=== PATIENT | male | born 2000 | race Caucasian/White ===

== ENCOUNTER 2020-09-17 07:25 | Inpatient (IN) ==
[2020-09-17] MEDS ORDERED: XYLOCAINE 1%/SOD BICARB 20 ML VIAL INFIL ONE (07:49)
[2020-09-17] MEDS ORDERED: DIPHTHERIA/TETANUS/PERTUSSIS 0.5 ML SYR/VIAL IM ONE (07:49)
[2020-09-17] MEDS ORDERED: SODIUM CHLORIDE 0.9% 1000ML 1,000 ML IV ONE (07:49)
[2020-09-17] MEDS ORDERED: OPTIRAY 320 100ml IV ONE (08:01)
[2020-09-17 08:32] LABS: Basophils # (auto) 0.03 K/uL (0-0.2); Basophils % (auto) 0.3 %; Eosinophils % (auto) 2.2 %; Hematocrit (blood only) 41.6 % (42-52); Hemoglobin 14.3 g/dL (14.0-18.0); Immature Granulocytes # (auto) 0.01 K/uL (0.00-0.02); Immature Granulocytes % (auto) 0.1 %; Lymphocytes # (auto) 2.04 K/uL (1.2-3.4); Lymphocytes % (auto) 22.8 %; Mean Corpuscular Hemoglobin 28.5 pg (25-34); Mean Corpuscular Hgb Conc 34.4 g/dL (32-36); Mean Platelet Volume 10.5 fL (7.4-10.4); Monocytes # (auto) 0.49 K/uL (0.11-0.59); Monocytes % (auto) 5.5 %; Neutrophils # (auto) 6.19 K/uL (1.4-6.5); Neutrophils % (auto) 69.1 %; Platelet Count 253 K/uL (130-400); RDW Coefficient of Variation 12.6 % (11.5-14.5); RDW Standard Deviation 37.7 fL (36.4-46.3); Red Blood Count 5.01 M/uL (4.7-6.1); White Blood Count 8.96 K/uL (4.8-10.8)
[2020-09-17 08:44] LABS: Prothrombin Time 10.4 Seconds (9.0-12.0)
--- NOTE | 2020-09-17 08:46 | XRay Report ---
XR wrist LT min 3V routine CLINICAL HISTORY: L wrist lac COMPARISON: None. DISCUSSION: No acute fracture dislocation. Multiple calcifications are seen within edematous soft tissue at the d orsal aspect of the left wrist likely representing foreign bodies. IMPRESSION: As above ACT 112: Negative or not required by law. The above report was generated using voice recognition software. It may contain grammatical, syntax o r spelling errors. Electronically signed by: Azeb Ho DO 09/17/2020 8:45 AM
[2020-09-17 08:56] LABS: Alanine Aminotransferase 27 U/L (12-78); Albumin Level 3.9 gm/dl (3.4-5.0); Aspartate Aminotransferase 16 U/L (15-37); BUN Creatinine Ratio 7.9 (10-20); Blood Urea Nitrogen 8 mg/dl (7-18); Calcium 8.2 mg/dl (8.5-10.1); Carbon Dioxide 27 mmol/L (21-32); Chloride 114 mmol/L (98-107); Creatinine Clr Calc Pharmacy 112.4 ml/min; Est GFR (African American) 124.1 ml/min; Est GFR (Non-African American) 107.1 ml/min; Glucose 99 mg/dl (70-99); Potassium 3.9 mmol/L (3.5-5.1); Sodium 146 mmol/L (136-145)
[2020-09-17 09:01] LABS: Albumin Globulin Ratio 1.1 (0.9-2); Alkaline Phosphatase 88 U/L (45-117); Bilirubin,Total 0.2 mg/dl (0.2-1); Globulin 3.5 gm/dl (2.5-4.0); Total Protein 7.4 gm/dl (6.4-8.2); Troponin I < 0.015 ng/ml (0-0.045)
[2020-09-17 09:14] LABS: iSTAT Creatinine 1.1 mg/dl (0.6-1.3); iSTAT Hemoglobin 14.3 g/dl (14.0-18.0); iSTAT Ionized Calcium 1.14 mmol/l (1.12-1.32)
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
[2020-09-17] MEDS ORDERED: ceFAZolin 2000MG 2,000 MG/15 ML SYR IV STA (10:42)
[2020-09-17] MEDS ORDERED: THIAMINE HCL 200 MG in SODIUM CHLORIDE 0.9% 50 ML IV STA (11:01)
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
[2020-09-17] MEDS ORDERED: THIAMINE HCL 200 MG in SODIUM CHLORIDE 0.9% 50 ML IV ONE (11:15)
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
[2020-09-17] MEDS ORDERED: FOLIC ACID 1 MG in SYRINGE 9.8 ML IV ONE (11:30)
[2020-09-17 11:42] LABS: Magnesium 2.2 mg/dl (1.8-2.4)
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
[2020-09-17] MEDS ORDERED: LORazepam 1 MG TAB PO PRN (13:25)
[2020-09-17] MEDS ORDERED: ONDANSETRON INJ 2 MG/ML 2 ML VIAL IV PRN ×3 (13:25→19:41)
[2020-09-17] MEDS ORDERED: KETOROLAC 30 MG/ML VIAL IV PRN (13:25)
[2020-09-17] MEDS ORDERED: MoRPHine SULFATE 2 MG/ML CARP IV PRN (13:25)
[2020-09-17] MEDS ORDERED: LORazepam 1 MG/2 ML VIAL IV PRN (13:25)
[2020-09-17] MEDS ORDERED: ACETAMINOPHEN 325 MG TAB PO PRN (13:25)
[2020-09-17] MEDS: FAMOTIDINE 20 MG in SYRINGE 3 ML IV SCH ×2 (13:55→22:43)
[2020-09-17] MEDS: D5W AND 1/2NSS + 20MEQ KCL 20 MEQ/1,000 ML BAG IV SCH ×2 (13:55→22:43)
[2020-09-17] MEDS ORDERED: LIDOCAINE 2% 2 ML VIAL/AMP(20MG/ML) INFIL ONE (19:22)
[2020-09-17] MEDS ORDERED: PROPOFOL IV EMULSION 10 MG/ML 20 ML VIAL IV ONE (19:23)
[2020-09-17] MEDS ORDERED: fentaNYL citrate 100 MCG/2 ML VIAL ONE ×2 (19:23→20:42)
[2020-09-17] MEDS ORDERED: MIDAZOLAM HCL 1 MG/ML 2ML VIAL ONE (19:24)
[2020-09-17] MEDS ORDERED: BUPIVACAINE 0.5 % 5 MG/1 ML MPF 30ML VIAL ONE (19:28)
[2020-09-17] MEDS ORDERED: LIDOCAINE 1% LOCAL 20 ML VIAL ONE (19:28)
--- NOTE | 2020-09-17 19:32 | Anesthesiology Consultation ---
Date of Service September 17, 2020 Assessment & Plan Chart Review Chart Review: Acceptable Risk for Surgery Consults Requested none History Surgery Operation Date: 09/17/20 13:00 Proposed Procedures p Incision and Drainage Extremity(Left) - Noé Medina M.D. Height/Weight Height: 5 ft 10 in Weight: 68 kg Allergies Allergy/AdvReac Type Severity Reaction Status Date / Time No Known Allergies Allergy Unverified 09/17/20 11:02 Medications Home Medications Medication Instructions Recorded Confirmed Last Taken No Known Home Medications 09/17/20 09/17/20 Unknown Active Medications Generic Name Dose Route Start Last Admin Trade Name Freq PRN Reason Stop Dose Admin Potassium Chloride/Dextrose/Sod Cl 20 meq in 1,000 mls @ 125 mls/hr 09/17/20 13:45 09/17/20 13:55 D5w And 1/2nss + 20meq Kcl IV 09/18/20 05:44 125 mls/hr .Q8H JW Administration Famotidine 20 mg/ Syringe 5 mls @ 2.5 mls/min 09/17/20 14:00 09/17/20 13:55 IV 10/17/20 13:59 2.5 mls/min BID WJ Administration NPO Date Last Intake of Fluids: 09/17/20 Time Last Intake of Fluids: 04:00 Date Last Intake of Solids: 09/16/20 Time Last Intake of Solids: 22:00 Past Medical History Medical History Alcohol abuse History of marijuana use per ER records Vaping nicotine dependence, tobacco product Past Family History Family History Father No pertinent family history Mother No pertinent family history Past Surgical History Surgical History No significant past surgical history Social History Smoking Status: Never smoker Do You Dip or Chew Tobacco: No Hx Alcohol Use: Yes Alcohol type: beer, wine and hard liquor alcohol intake frequency: a few times a month Hx Substance Use: No substance use type: does not use Physical Exam Vital Signs Last Vital Signs Temp 37 C 09/17/20 15:37 Pulse 105 H 09/17/20 15:37 Resp 14 09/17/20 15:37 BP 152/72 H 09/17/20 15:37 Pulse Ox 100 09/17/20 15:37 Testing Laboratory Results 09/17/20 08:14 09/17/20 08:14 PT 10.4 Seconds (9.0-12.0) 09/17/20 08:14 INR 1.0 (0.9-1.1) 09/17/20 08:14 09/17/20 08:48 POC Glucose (other) 111 H
[2020-09-17] MEDS ORDERED: HYDROmorphone INJ 1 MG/ML SYRINGE IV PRN (19:33)
[2020-09-17] MEDS ORDERED: ATROPINE SULFATE 0.1 MG/ML 10ML SYR IV PRN ×2 (19:33→19:41)
[2020-09-17] MEDS ORDERED: fentaNYL citrate 100 MCG/2 ML VIAL IV PRN ×2 (19:33→19:41)
[2020-09-17] MEDS ORDERED: ePHEDrine sulfate 50 MG/ML AMP IV PRN ×2 (19:33→19:41)
[2020-09-17] MEDS ORDERED: HYDROmorphone INJ 2 MG/ML SYR/VIAL IV PRN (19:41)
[2020-09-17] MEDS ORDERED: ONDANSETRON INJ 2 MG/ML 2 ML VIAL ONE (20:02)
[2020-09-17] MEDS ORDERED: DEXAMETHASONE SOD INJ 4 MG/ML VIAL ONE (20:02)
--- NOTE | 2020-09-17 21:09 | Post Operative Brief Note ---
Immediate Post Op Note v1 Date of Surgery September 17, 2020 Pre & Post Diagnosis Operation Date: 09/17/20 13:00 Pre-Op Diagnosis: Left wrist extensively contaminated wound and extensor pollicis longus rupture Post-Op Diagnosis: Left wrist extensively contaminated wound with rupture of extensor pollicis longus tendon and laceration of the superficial sensory branch of the radial nerve I identified the patient and participated in the time-out.: Yes Procedure Operation Date: 09/17/20 13:00 Actual Procedures p Left wrist irrigation and debridement and closure of wound 6 cm x 3 cm (Left) - Noé Medina M.D. Surgeon Noé Medina Workgroup Leader Korey Estrada PA-C Estimated Blood Loss 35 Findings Consistent with Post-Op Diagnosis
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
--- NOTE | 2020-09-17 21:54 | Anesthesiology Progress Note ---
Date of Service September 17, 2020 Anesthesia Post Procedure Vital Signs Vital Signs: Temp Pulse Pulse Pulse Resp BP BP 09/17/20 21:45 97 H 21 154/91 H 09/17/20 21:35 92 H 16 167/106 H 09/17/20 21:27 36.5 C 90 17 163/90 H 09/17/20 15:37 37 C 105 H 14 152/72 H 09/17/20 14:00 112 H 09/17/20 13:42 36.9 C 100 H 16 156/72 H 09/17/20 13:25 36.9 C 09/17/20 12:07 96 H 16 147/71 H 09/17/20 11:16 117 H 16 138/94 09/17/20 10:17 97 H 13 141/88 H 09/17/20 07:28 94 H 18 140/80 09/17/20 07:22 37.1 C 97 H 22 140/80 Pulse Ox Pulse Ox 09/17/20 21:45 100 09/17/20 21:35 99 09/17/20 21:27 99 09/17/20 15:37 100 09/17/20 14:00 09/17/20 13:42 99 09/17/20 13:25 99 09/17/20 12:07 96 09/17/20 11:16 97 09/17/20 10:17 09/17/20 07:28 97 09/17/20 07:22 97 Pain Intensity Left Arm: Pain Intensity: 4 Transfer of Care Handoff Completed per policy Notes Mental Status: alert / awake / arousable and participated in evaluation Patient Amnestic to Procedure: Yes Nausea / Vomiting: adequately controlled Pain: adequately controlled Airway Patency, RR, SpO2: stable & adequate BP & HR: stable & adequate Hydration State: stable & adequate Anesthetic Complications: no major complications apparent and Pt Satisfied with anesthetic care
[2020-09-17 22:07] LABS: Amphetamines+Metham, Urine Neg (Neg); Barbiturates, Urine Neg (Neg); Benzodiazepine, Urine Neg (Neg); Cocaine, Urine Neg (Neg); MDMA (Ecstacy), Urine Neg (Neg); Methadone, Urine Neg (Neg); Opiate, Urine Neg (Neg); Phencyclidine, Urine Neg (Neg)
[2020-09-17] MEDS ORDERED: ceFAZolin 1000MG 1,000 MG/7.5 ML SYR IV SCH (22:18)
[2020-09-17] MEDS: ceFAZolin 2000MG 2,000 MG/15 ML SYR IV SCH (22:22)
[2020-09-17] MEDS: THIAMINE HCL 200 MG in SODIUM CHLORIDE 0.9% 50 ML IV SCH (22:43)
[2020-09-18] MEDS: ceFAZolin 2000MG 2,000 MG/15 ML SYR IV SCH ×2 (03:02→10:44)
[2020-09-18 05:54] LABS: Basophils # (auto) 0.01 K/uL (0-0.2); Basophils % (auto) 0.1 %; Hematocrit (blood only) 39.5 % (42-52); Hemoglobin 13.5 g/dL (14.0-18.0); Immature Granulocytes # (auto) 0.03 K/uL (0.00-0.02); Immature Granulocytes % (auto) 0.2 %; Lymphocytes # (auto) 1.12 K/uL (1.2-3.4); Lymphocytes % (auto) 8.4 %; Mean Corpuscular Hemoglobin 28.4 pg (25-34); Mean Corpuscular Hgb Conc 34.2 g/dL (32-36); Mean Platelet Volume 10.4 fL (7.4-10.4); Monocytes # (auto) 0.98 K/uL (0.11-0.59); Monocytes % (auto) 7.3 %; Neutrophils # (auto) 11.23 K/uL (1.4-6.5); Platelet Count 209 K/uL (130-400); RDW Coefficient of Variation 12.5 % (11.5-14.5); RDW Standard Deviation 37.8 fL (36.4-46.3); Red Blood Count 4.76 M/uL (4.7-6.1); White Blood Count 13.37 K/uL (4.8-10.8)
[2020-09-18 06:32] LABS: Albumin Level 3.6 gm/dl (3.4-5.0); BUN Creatinine Ratio 7.4 (10-20); Bilirubin,Total 0.7 mg/dl (0.2-1); Calcium 8.9 mg/dl (8.5-10.1); Creatinine Clr Calc Pharmacy 137.4 ml/min; Est GFR (African American) 145.8 ml/min; Est GFR (Non-African American) 125.8 ml/min; Potassium 4.2 mmol/L (3.5-5.1)
[2020-09-18 06:39] LABS: Albumin Globulin Ratio 1.1 (0.9-2); Globulin 3.3 gm/dl (2.5-4.0); Total Protein 6.9 gm/dl (6.4-8.2)
--- NOTE | 2020-09-18 07:23 | Electrocardiogram Report ---
Test Reason : Blood Pressure : / mmHG Vent. Rate : 092 BPM Atrial Rate : 092 BPM P-R Int : 144 ms QRS Dur : 098 ms QT Int : 344 ms P-R-T Axes : 079 052 068 degrees QTc Int : 425 ms Normal sinus rhythm Incomplete right bundle branch block Borderline ECG When compared with ECG of 14-AUG-2017 16:11, No significant change was found Confirmed by Sukhdev Cm ([id number]) on 09/18/2020 7:23:04 AM Referred By: REFERRED SELF Confirmed By:Kp Cm
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
[2020-09-18] MEDS ORDERED: FOLIC ACID 1 MG TAB PO SCH (09:00)
[2020-09-18] MEDS ORDERED: CEROVITE ADV FORMULA TAB PO SCH (09:00)
[2020-09-18] MEDS: THIAMINE HCL 200 MG in SODIUM CHLORIDE 0.9% 50 ML IV SCH (10:06)
[2020-09-18] MEDS: FAMOTIDINE 20 MG in SYRINGE 3 ML IV SCH (10:06)
[2020-09-18] MEDS ORDERED: MIDAZOLAM HCL 1 MG/ML 2ML VIAL ONE (10:09)
[2020-09-18] MEDS ORDERED: fentaNYL citrate 100 MCG/2 ML VIAL ONE ×2 (10:09→11:07)
[2020-09-18] MEDS ORDERED: LIDOCAINE 1% LOCAL 20 ML VIAL ONE (10:27)
[2020-09-18] MEDS ORDERED: BUPIVACAINE 0.5 % 5 MG/1 ML MPF 30ML VIAL ONE (10:27)
--- NOTE | 2020-09-18 10:38 | Anesthesiology Consultation ---
Date of Service September 18, 2020 Assessment & Plan Chart Review Chart Review: Acceptable Risk for Surgery Consults Requested none History Surgery Operation Date: 09/17/20 13:00 Proposed Procedures p Incision and Drainage Extremity(Left) - Noé Medina M.D. Operation Date: 09/18/20 11:00 Proposed Procedures p Exploration Finger Tendon Repair(Left) - Noé Medina M.D. Height/Weight Height: 5 ft 10 in Weight: 69 kg Allergies Allergy/AdvReac Type Severity Reaction Status Date / Time No Known Allergies Allergy Unverified 09/17/20 11:02 Medications Home Medications Medication Instructions Recorded Confirmed Last Taken No Known Home Medications 09/17/20 09/17/20 Unknown Active Medications Generic Name Dose Route Start Last Admin Trade Name Augustin PRN Reason Stop Dose Admin Folic Acid 1 mg 09/18/20 09:00 09/18/20 10:04 Folic Acid 1 Mg Tab PO 10/18/20 08:59 1 mg QAM JW Administration Thiamine HCl 200 mg/ Sodium 52 mls @ 208 mls/hr 09/17/20 21:00 09/18/20 10:06 Chloride IV 10/17/20 20:59 208 mls/hr BID JW Administration Famotidine 20 mg/ Syringe 5 mls @ 2.5 mls/min 09/17/20 14:00 09/18/20 10:06 IV 10/17/20 13:59 2.5 mls/min BID JW Administration Cefazolin Sodium 2,000 mg in 15 mls @ 3.75 mls/min 09/17/20 19:00 09/18/20 03:02 Ancef 2000mg IV 09/24/20 18:59 3.75 mls/min Q8H JW Administration Protocol Multivitamins/Minerals 1 tab 09/18/20 09:00 09/18/20 10:04 Cerovite Adv Formula Tab PO 10/18/20 08:59 1 tab QAM JW Administration NPO Date Last Intake of Fluids: 09/18/20 Time Last Intake of Fluids: 04:00 Date Last Intake of Solids: 09/17/20 Time Last Intake of Solids: 22:00 Past Medical History Medical History Alcohol abuse History of marijuana use per ER records Vaping nicotine dependence, tobacco product Past Family History Family History Father No pertinent family history Mother No pertinent family history Past Surgical History Surgical History No significant past surgical history Social History Smoking Status: Never smoker Do You Dip or Chew Tobacco: No Hx Alcohol Use: Yes Alcohol type: beer, wine and hard liquor alcohol intake frequency: a few times a month Hx Substance Use: No substance use type: does not use Physical Exam Vital Signs Last Vital Signs Temp 37 C 09/18/20 07:31 Pulse 74 09/18/20 10:23 Resp 14 09/18/20 07:31 BP 138/63 09/18/20 07:31 Pulse Ox 96 09/18/20 07:31 Testing Laboratory Results 09/18/20 05:27 09/18/20 05:27 PT 10.4 Seconds (9.0-12.0) 09/17/20 08:14 INR 1.0 (0.9-1.1) 09/17/20 08:14
[2020-09-18] MEDS ORDERED: HYDROmorphone INJ 2 MG/ML SYR/VIAL IV PRN (10:39)
[2020-09-18] MEDS ORDERED: fentaNYL citrate 100 MCG/2 ML VIAL IV PRN (10:39)
[2020-09-18] MEDS ORDERED: ePHEDrine sulfate 50 MG/ML AMP IV PRN (10:39)
[2020-09-18] MEDS ORDERED: ONDANSETRON INJ 2 MG/ML 2 ML VIAL IV PRN (10:39)
[2020-09-18] MEDS ORDERED: ATROPINE SULFATE 0.1 MG/ML 10ML SYR IV PRN (10:39)
--- NOTE | 2020-09-18 10:50 | History & Physical Bridge Note ---
Date of Service September 18, 2020 History & Physical Bridge Note I have examined the patient, reviewed the History & Physical and in the interval since the performance of the History & Physical I have noted the following changes of clinical significance: During initial irrigation and debridement surgery yesterday, it was noted that the wound was grossly contaminated. He also had extensor pollicis longus tendon rupture. It looks like there is enough tendon length remaining in his wrist to perform a primary repair. Due to the gross contamination, I planned for repeat irrigation and debridement with extensor tendon repair today. Risks, benefits, and alternatives of surgery were explained in detail. The surgical procedure, as well as postoperative recovery and rehabilitation, was also explained in detail. Risks include bleeding; infection; damage to surrounding structures such as nerves, blood vessels, and tendons that run in the area; persistent pain, weakness, or stiffness; hardware failure or failure of the repair; or need for further surgery. The patient understands all of this and wishes to proceed with surgery. Informed consent was obtained.
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
--- NOTE | 2020-09-18 12:48 | Anesthesiology Progress Note ---
Date of Service September 18, 2020 Anesthesia Post Procedure Vital Signs Vital Signs: Temp Pulse Pulse Pulse Resp BP BP 09/18/20 12:45 75 16 138/64 09/18/20 12:35 76 16 141/61 H 09/18/20 12:28 36.6 C 95 H 16 132/57 L 09/18/20 10:23 74 09/18/20 07:31 37 C 74 14 138/63 09/18/20 05:04 89 09/18/20 03:09 37.2 C 89 13 136/79 09/18/20 00:48 37.5 C 81 16 137/87 09/17/20 23:48 37.6 C H 76 15 154/83 H 09/17/20 22:48 37.7 C H 98 H 15 163/100 H 09/17/20 22:18 37.5 C 88 14 169/98 H 09/17/20 22:00 37.2 C 94 H 22 164/96 H 09/17/20 21:55 96 H 15 163/94 H 09/17/20 21:45 97 H 21 154/91 H 09/17/20 21:35 92 H 16 167/106 H 09/17/20 21:27 36.5 C 90 17 163/90 H 09/17/20 15:37 37 C 105 H 14 152/72 H 09/17/20 14:00 112 H 09/17/20 13:42 36.9 C 100 H 16 156/72 H 09/17/20 13:25 36.9 C Pulse Ox Pulse Ox 09/18/20 12:45 98 09/18/20 12:35 99 09/18/20 12:28 99 09/18/20 10:23 09/18/20 07:31 96 09/18/20 05:04 09/18/20 03:09 98 09/18/20 00:48 95 09/17/20 23:48 95 09/17/20 22:48 98 09/17/20 22:18 98 09/17/20 22:00 98 09/17/20 21:55 99 09/17/20 21:45 100 09/17/20 21:35 99 09/17/20 21:27 99 09/17/20 15:37 100 09/17/20 14:00 09/17/20 13:42 99 09/17/20 13:25 99 Pain Intensity Left Arm: Pain Intensity: 4 Transfer of Care Handoff Completed per policy Notes Mental Status: alert / awake / arousable and participated in evaluation Patient Amnestic to Procedure: Yes Nausea / Vomiting: adequately controlled Pain: adequately controlled Airway Patency, RR, SpO2: stable & adequate BP & HR: stable & adequate Hydration State: stable & adequate Anesthetic Complications: no major complications apparent
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
== END 2020-09-18 16:31 | disposition home or self-care (01) | DRG 501 ==
LOC: ED 07:25 → SUATTDRO 11:52 → 2E 11:52